=== PATIENT | female | born 1985 | race Caucasian/White ===

== ENCOUNTER 2018-03-29 19:35 | Emergency (ER) | payer SELFPAY ==
[2018-03-29 20:14] LABS: ADD MAN DIFF? NO
[2018-03-29] MEDS: KETOROLAC 15 MG INJ IV (20:16)
[2018-03-29] MEDS: SOD CHLORIDE 0.9% 1,000 ML IV (20:16)
[2018-03-29 20:17] LABS: WHITE BLOOD COUNT 10.7 10^3/ul (4.8-10.8)
[2018-03-29 20:17] LABS: BASOPHILS % 0.4 % (0.0-2.0); EOSINOPHILS # 0.2 10^3/ul (0.0-0.5); EOSINOPHILS % 1.4 % (0.0-7.0); HEMATOCRIT 38.5 % (37.0-47.0); HEMOGLOBIN 12.7 g/dl (12.0-16.0); LYMPHOCYTES # 1.5 10^3/ul (0.8-2.9); LYMPHOCYTES % 13.6 % (15.0-51.0); MEAN CORPUSCULAR HEMOGLOBIN 29.4 pg (29.0-33.0); MEAN CORPUSCULAR VOLUME 89.1 fl (82.0-101.0); MONOCYTE # 0.6 10^3/ul (0.3-0.9); MONOCYTES % 5.5 % (0.0-11.0); NEUTROPHIL # 8.4 10^3/ul (1.6-7.5); NEUTROPHILS % 78.8 % (39.0-77.0); PLATELET COUNT 165 10^3/UL (140-415); RED BLOOD COUNT 4.32 10^6/ul (4.20-5.40); RED CELL DISTRIBUTION WIDTH 12.7 % (11.5-14.5)
[2018-03-29 20:22] LABS: ANION GAP 11 (5-13); BLOOD UREA NITROGEN 16 mg/dl (7-20); CALCIUM 9.2 mg/dl (8.4-10.2); CARBON DIOXIDE 27 mmol/L (21-31); CHLORIDE 101 mmol/L (97-110); CREATININE 0.54 mg/dl (0.44-1.00); Estimated GFR > 60 mL/min (>60); GLUCOSE 123 mg/dl (70-220); POTASSIUM 3.3 mmol/L (3.5-5.1); SODIUM 139 mmol/L (135-144)
[2018-03-29 20:34] LABS: TROPONIN-I < 0.012 ng/ml (0.000-0.120)
[2018-03-29] MEDS: POTASSIUM CHLORIDE (SR) 20 MEQ TAB PO (21:25)
== END 2018-03-29 21:20 | disposition home or self-care (01) ==
LOC: E/R 19:35
DX: E87.6 Hypokalemia (principal); M79.602 Pain in left arm; R11.0 Nausea; R40.2252 Coma scale, best verbal response, oriented, at arrival to emergency department; R40.2142 Coma scale, eyes open, spontaneous, at arrival to emergency department; R40.2362 Coma scale, best motor response, obeys commands, at arrival to emergency department; F43.9 Reaction to severe stress, unspecified
CPT/HCPCS: 36415; 71045; 80048; 81025; 84484; 85025; 93005; 96361; 96374; 99285-25